=== PATIENT | female | born 1970 | race Caucasian/White ===

== ENCOUNTER 2022-10-19 15:32 | Outpatient (AMB) | payer OTHER, SELFPAY ==
--- NOTE | 2022-10-19 16:06 | MHC.OFFVISPS ---
Intake Intake Visit Reasons: depression Allergies No Known Allergies Allergy (Verified 10/19/22 16:04) Medication List - Last Reconciled 10/19/22 by Logan Mondragon MD bupropion HCl (Wellbutrin XL) 300 mg PO QAM metoprolol succinate ER 25 mg PO DAILY pravastatin 20 mg PO DAILY progesterone micronized 200 mg PO BEDTIME sertraline 100 mg PO DAILY thyroid (pork) ([place] Thyroid) 90 mg PO QAM HPI- Psychiatric Chief Complaint: depression HPI Narrative: Pt is a 52 yo female hx depression anxiety rare limited sx panic attack using cbd occ has been using bioidentical hormones with testosterone does not have breakthrough sx works at [employer] hx of eating dx has performance anxiety patient has been on sertraline and Wellbutrin for an extended per time. She feels somewhat demoralized sure what to do with your herself she is seeing difficult 1 child who is staying at home for 1 more year has limited engagement interests except for around the stables. A has been feeling more depressed anxious ruminated were about her future her time not having fun and structure Past Psychiatric History: Patient has a past history of prior psychiatric hospitalization significant eating disorder history of depression past panic attacks associated in the past with SVT Mental Status Exam Mental Status Exam Patient Appearance: Well Grooomed Patient Orientation: Person, Place, Time and Situation Level of Consciousness: Awake and Appropriate Patient Behavior: Appropriate Mood Description: Depressed and Blunted Affect Description: Appropriate, Constricted and Apprehensive Patient Cognition Impaired: No Ability to Follow Directions: Good Speech Pattern: Clear Memory Description: Intact Hallucinations: None Delusions: Not Present Thought Process: Intact and Goal Oriented Thought Content: positive for Goal Oriented, positive for Preoccupation, negative for Suicidal Ideation or negative for Homicidal Ideation Depressive Symptoms: Increased Anxiety, Increased Irritability, Hopelessness, Increased Fatigue, Loss of Energy and Difficulty Concentrating Judgement: Good Judgement and Insight: Agrees would benefit from longstanding psychotherapy related to eating disorder image anxiety identity Assessment and Plan Assessment & Plan (1) Dysthymia: Status: Acute Code(s): F34.1 - Dysthymic disorder (2) Eating disorder: Status: Acute Code(s): F50.9 - Eating disorder, unspecified (3) Generalized anxiety disorder: Status: Acute Code(s): F41.1 - Generalized anxiety disorder Plan Patient feels no longer her grounded obsessional anxiety dysphoria boredom feeling unhappy not sure what she should do. Difficulty in managing life cycle changes can increase Wellbutrin continue sertraline 100 mg Counseling and coordination of Care Pt. Self Management counseling: Maintenance-social rhythm and Behavior activation Details-Self Mgmt counseling: Issues related to identity growth change in life cycle empty nest feeling of depressive symptoms panic lack of motivation and interest in what she is doing Diagnosis and Prognosis Counseling: Accuracy of diagnosis, Prognosis over time and Problematic behaviors secondary to diagnosis Details: I spent [38] minutes reviewing the record, seeing the patient and documenting in the medical record. Counseling provided to the patient/caregiver as outlined below. Addressed patient/caregiver concerns regarding current medication regime including effective adherence. Addressed patient/caregiver concerns regarding diagnosis and prognosis including accuracy of diagnosis, prognosis over time, impact of diagnosis. Addressed patient/caregiver concerns regarding impact of recent stressors. [facility] Medical History (Updated 11/20/22 @ 23:38 by Logan Mondragon MD) Dysthymia Eating disorder Generalized anxiety disorder Coding Level of Care Code Est Pt Level 3 (47321) Therapy 30m w/E&M (07640) Diagnoses Dysthymia F34.1 Eating disorder F50.9 Generalized anxiety disorder F41.1
== END 2022-10-19 17:21 | disposition home or self-care (01) ==
LOC: HO.HOP 15:32
PROVIDERS: PCP Internal Medicine; Visit Provider Psychiatry & Neurology Psychiatry
DX: F34.1 Dysthymic disorder (principal); F50.9 Eating disorder, unspecified; F41.1 Generalized anxiety disorder
CPT/HCPCS: 90833; 99213

== ENCOUNTER → 2022-10-19 15:32 | Outpatient (BNVA) | payer OTHER, SELFPAY | PROVIDERS: PCP Internal Medicine; Visit Provider Psychiatry & Neurology Psychiatry ==

== ENCOUNTER 2023-04-12 13:17 | Outpatient (AMB) | payer OTHER, SELFPAY ==
--- NOTE | 2023-04-12 11:42 | A.OFFPSYCH_ITS ---
Intake Intake Visit Reasons: DEPRESSION Allergies No Known Allergies Allergy (Verified 10/19/22 16:04) HPI- Psychiatric Chief Complaint: DEPRESSION HPI Narrative: Pt feeling significantly better things feel more stable at home . Pt [place] lot of time at the barn mood has been much more improved still has issues with chronic anxiety and dysphoria. A lot related to aging and roll functioning. The patient has something of a reprieve for the next few months child at home. Her now has a regular physician has been trying to come home earlier. Patient does get some medical care from her sister who is an streetcar repairer helper she does take hormones supply by her sister Past Psychiatric History: Patient has a past history of prior psychiatric hospi talization significant eating disorder history of depression past panic attacks associated in the past with SVT Mental Status Exam Mental Status Exam Patient Appearance: Well Grooomed Patient Orientation: Person, Place, Time and Situation Level of Consciousness: Awake and Appropriate Patient Behavior: Appropriate Mood Description: Depressed and Blunted Affect Description: Appropriate, Constricted and Apprehensive Patient Cognition Impaired: No Ability to Follow Directions: Good Speech Pattern: Clear Memory Description: Intact Hallucinations: None Delusions: Not Present Thought Process: Intact and Goal Oriented Thought Content: positive for Goal Oriented, positive for Preoccupation, negative for Suicidal Ideation or negative for Homicidal Ideation Depressive Symptoms: Increased Anxiety, Increased Irritability, Hopelessness, Increased Fatigue, Loss of Energy and Difficulty Concentrating Judgement: Good Judgement and Insight: Agrees would benefit from longstanding psychotherapy related to eating disorder image anxiety identity Telehealth Telehealth Location of provider rendering services: practice address Location of patient: address on file Patient Identification confirmed using: Name, : Yes Telehealth method: video Patient verbally consented to treatment: Yes Patient verbally consented to billing insurance company: Yes Minutes spent on Phone/Video with Pt.: 19 Assessment and Plan Assessment & Plan (1) Generalized anxiety disorder: Status: Acute Code(s): F41.1 - Generalized anxiety disorder (2) Dysthymia: Status: Acute Code(s): F34.1 - Dysthymic disorder Plan Discussed different treatment options including Wellbutrin and BuSpar also discussed option of regular psychotherapy to deal with longer-term issues related to role functioning and aging start BuSpar 5 b.i.d. risks benefits alternatives reviewed also taking L methyl folate for augmentation Medications: New buspirone 10 mg PO BID 60 tabs 1RF Refilled bupropion HCl (Wellbutrin XL) 300 mg PO QAM 90 tabs 0RF sertraline 150 mg (1.5 x 100 mg) PO DAILY 135 tabs 1RF 3 months Counseling and coordination of Care Pt. Self Management counseling: Breathing and Behavior activation Medication management counseling: Effectiveness, Side effects and Dosing range Diagnosis and Prognosis Counseling: Accuracy of diagnosis, Impact of diagnosis on life functions and Adequacy of current interventions Details: I spent [25] minutes reviewing the record, seeing the patient and documenting in the medical record. Counseling provided to the patient/caregiver as outlined below. Addressed patient/caregiver concerns regarding current medication regime including effective adherence. Addressed patient/caregiver concerns regarding diagnosis and prognosis including accuracy of diagnosis, prognosis over time, impact of diagnosis. Addressed patient/caregiver concerns regarding impact of recent stressors. [facility] Medical History (Updated 11/20/22 @ 23:38 by Logan Mondragon MD) Generalized anxiety disorder Eating disorder Dysthymia Coding Level of Care Code Tele Est Pt Level 4 (09950) Diagnoses Generalized anxiety disorder F41.1 Dysthymia F34.1
== END 2023-04-12 13:19 | disposition home or self-care (01) ==
LOC: HO.HOP 13:17
PROVIDERS: PCP Internal Medicine; Visit Provider Psychiatry & Neurology Psychiatry
DX: F41.1 Generalized anxiety disorder (principal); F34.1 Dysthymic disorder
CPT/HCPCS: 99213

== ENCOUNTER → 2023-04-12 13:17 | Outpatient (BNVA) | payer OTHER, SELFPAY | PROVIDERS: PCP Internal Medicine; Visit Provider Psychiatry & Neurology Psychiatry ==

== ENCOUNTER 2023-11-24 10:28 | Outpatient (AMB) | payer OTHER, SELFPAY ==
--- NOTE | 2023-11-24 10:49 | MHC.OFFVISPS ---
Intake Intake Visit Reasons: depression Allergies No Known Allergies Allergy (Verified 10/19/22 16:04) Medication List - Last Reconciled 11/24/23 by Logan Mondragon MD bupropion HCl XL (Wellbutrin XL) 300 mg PO QAM buspirone 10 mg PO BID estradiol transdermal metoprolol succinate ER 25 mg PO DAILY niacinamide 500 mg PO BID pravastatin 20 mg PO DAILY progesterone micronized 200 mg PO BEDTIME sertraline 150 mg (1.5 x 100 mg) PO DAILY 3 months thyroid (pork) ([place] Thyroid) 60 mg PO QAM HPI- Psychiatric Chief Complaint: depression HPI Narrative: Pt seen in f/u mood has been ok issues related to aging relations with children now an empty chel . Has generally been good with her . Has had anxiety related to current stage life needs structure daily of caring for horses needing that structure fearful of change. Past Psychiatric History: Patient has a past history of prior psychiatric hospitalization significant eating disorder history of depression past panic attacks associated in the past with SVT Mental Status Exam Mental Status Exam Patient Appearance: Well Grooomed Patient Orientation: Person, Place, Time and Situation Level of Consciousness: Awake and Appropriate Patient Behavior: Appropriate and Talkative Mood Description: Appropriate Affect Description: Calm and Appropriate Patient Cognition Impaired: No Ability to Follow Directions: Good Speech Pattern: Clear Memory Description: Intact Hallucinations: None Delusions: Not Present Thought Process: Intact and Goal Oriented Thought Content: positive for Goal Oriented, positive for Preoccupation, negative for Suicidal Ideation or negative for Homicidal Ideation Depressive Symptoms: Increased Anxiety, Increased Irritability, Hopelessness, Increased Fatigue, Loss of Energy and Difficulty Concentrating Judgement: Good Judgement and Insight: Agrees would benefit from longstanding psychotherapy related to eating disorder image anxiety identity Assessment and Plan Assessment & Plan (1) Generalized anxiety disorder: Status: Acute Code(s): F41.1 - Generalized anxiety disorder (2) Eating disorder: Status: Acute Code(s): F50.9 - Eating disorder, unspecified (3) Dysthymia: Status: Acute Code(s): F34.1 - Dysthymic disorder Plan Patient has not had any major relapses with eating disorder occasional mild blues but generally in good spirits some periods of mild anxiety. Issues discussed related to family interactions with children self-esteem has some degree of chronic social anxiety. 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 Strongly urged ongoing IT Medications: Changed From buspirone 10 mg PO BID 60 tabs 1RF To buspirone 10 mg PO BID 180 tabs 1RF 3 months Counseling and coordination of Care Pt. Self Management counseling: Maintenance-social rhythm Details-Self Mgmt counseling: issues related to self esteem interactions with her son discussed ways to enhance social connections Diagnosis and Prognosis Counseling: Adequacy of current interventions Details: I spent [42] minutes reviewing the record, seeing the patient and documenting in the medical record. Counseling provided to the patient/caregiver as outlined below. Addressed patient/caregiver concerns regarding current medication regime including effective adherence. Addressed patient/caregiver concerns regarding diagnosis and prognosis including accuracy of diagnosis, prognosis over time, impact of diagnosis. Addressed patient/caregiver concerns regarding impact of recent stressors. [facility] Medical History (Updated 11/20/22 @ 23:38 by Logan Mondragon MD) Generalized anxiety disorder Eating disorder Dysthymia Coding Level of Care Code Est Pt Level 3 (77096) Therapy 30m w/E&M (35810) Diagnoses Generalized anxiety disorder F41.1 Eating disorder F50.9 Dysthymia F34.1
== END 2023-11-24 11:34 | disposition home or self-care (01) ==
LOC: HO.HOP 10:28
PROVIDERS: PCP Internal Medicine; Visit Provider Psychiatry & Neurology Psychiatry
DX: F41.1 Generalized anxiety disorder (principal); F50.9 Eating disorder, unspecified; F34.1 Dysthymic disorder
CPT/HCPCS: 90833; 99213

== ENCOUNTER → 2023-11-24 10:28 | Outpatient (BNVA) | payer OTHER, SELFPAY | PROVIDERS: PCP Internal Medicine; Visit Provider Psychiatry & Neurology Psychiatry ==

== ENCOUNTER 2024-03-15 10:17 | Outpatient (AMB) | payer OTHER, SELFPAY ==
--- OUTSIDE RECORDS SUMMARY | 2024-03-15 10:21 | XMS_ITS | Continuity of Care Document ---
Author Organization [facility] [address] [place] [address] Phone [phone] Social History Type Date Description Comments Sex Unknown Medical Devices Description No Information Available Encounters Description No Information Available Assessments Description No Information Available Plan of Treatment No Information Available Functional Status Description No Information Available Mental Status Description No Information Available Referrals Description No Information Available
--- NOTE | 2024-03-15 10:56 | A.OFFPSYCH_ITS ---
Intake Intake Visit Reasons: depression Allergies No Known Allergies Allergy (Verified 10/19/22 16:04) HPI- Psychiatric Chief Complaint: depression HPI Narrative: Pt seen in f/u patient generally doing okay has not seen a therapist we had discussed seeing someone to help sort out current potassium is. 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 Patient's mood generally stable still has 1 young adult at home. Things generally well with her and family. No acute medical problems noted has felt stable with hormonal replacement BuSpar sertraline and Wellbutrin. Angelito 7 and PHQ-9 are unremarkable Past Psychiatric History: Patient has a past history of prior psychiatric hospitalization significant eating disorder history of depression past panic attacks associated in the past with SVT Mental Status Exam Mental Status Exam Patient Appearance: Well Grooomed Patient Orientation: Person, Place, Time and Situation Level of Consciousness: Awake and Appropriate Patient Behavior: Appropriate and Talkative Mood Description: Appropriate Affect Description: Calm and Appropriate Patient Cognition Impaired: No Ability to Follow Directions: Good Speech Pattern: Clear Memory Description: Intact Hallucinations: None Delusions: Not Present Thought Process: Intact and Goal Oriented Thought Content: positive for Goal Oriented, positive for Preoccupation, negative for Suicidal Ideation or negative for Homicidal Ideation Judgement: Good Judgement and Insight: Patient states she has been feeling better she and her have been discussing potential moves Assessment and Plan Assessment & Plan (1) Generalized anxiety disorder: Status: Acute Code(s): F41.1 - Generalized anxiety disorder Plan Discussion of regular meditation Meuse headband relaxation training yoga increase BuSpar to 15 mg twice a day potential side effects balance patient call if problematic continue sertraline 150 mg Wellbutrin blood pressure mildly elevated will follow-up with her PCP. Discussed possibility of propranolol 10 mg p.r.n. however she is on metoprolol 25 extended release also reviewed possibility of life science research assistant Dysthymia and eating disorder appeared to be in remission Medications: Changed From buspirone 10 mg PO BID 3 months 180 tabs 1RF To buspirone 15 mg PO BID 60 tabs 0RF 30 days Counseling and coordination of Care Pt. Self Management counseling: Breathing and Mindfulness Details-Self Mgmt counseling: Issues related to management of anxiety and self-image ongoing Medication management counseling: Effectiveness, Side effects and Dosing range Diagnosis and Prognosis Counseling: Prognosis over time and Adequacy of current interventions Details: I spent [39] minutes reviewing the record, seeing the patient and documenting in the medical record. Counseling provided to the patient/caregiver as outlined below. Addressed patient/caregiver concerns regarding current medication regime including effective adherence. Addressed patient/caregiver concerns regarding diagnosis and prognosis including accuracy of diagnosis, prognosis over time, impact of diagnosis. Addressed patient/caregiver concerns regarding impact of recent stressors. [facility] Medical History (Updated 11/20/22 @ 23:38 by Logan Mondragon MD) Generalized anxiety disorder Eating disorder Dysthymia Coding Level of Care Code Est Pt Level 3 (44941) Therapy 30m w/E&M (58181) Diagnoses Generalized anxiety disorder F41.1
== END 2024-03-15 11:08 | disposition home or self-care (01) ==
LOC: HO.HOP 10:17
PROVIDERS: PCP Internal Medicine; Visit Provider Psychiatry & Neurology Psychiatry
DX: F41.1 Generalized anxiety disorder (principal)
CPT/HCPCS: 90833; 99213

== ENCOUNTER 2024-06-22 10:34 | Outpatient (AMB) | payer OTHER, SELFPAY ==
--- NOTE | 2024-06-22 10:57 | MHC.OFFVISPS ---
Intake Intake Visit Reasons: depression Allergies No Known Allergies Allergy (Verified 10/19/22 16:04) HPI- Psychiatric Chief Complaint: depression HPI Narrative: Pt seen in f/u mood has been good significantly improved since being on buspar Has been thinking of ways to detangle herself to always be perfect, and always having that pressure. Pt cont on sertraline no binge purging. Pt looking at changing her life around talking with her h about different ideas and possibly moving. Past Psychiatric History: Patient has a past history of prior psychiatric hospitalization significant eating disorder history of depression past panic attacks associated in the past with SVT Mental Status Exam Mental Status Exam Patient Appearance: Well Grooomed Patient Orientation: Person, Place, Time and Situation Level of Consciousness: Awake and Appropriate Patient Behavior: Appropriate and Talkative Mood Description: Appropriate Affect Description: Calm and Appropriate Patient Cognition Impaired: No Ability to Follow Directions: Good Speech Pattern: Clear Memory Description: Intact Hallucinations: None Delusions: Not Present Thought Process: Intact and Goal Oriented Thought Content: positive for Goal Oriented, positive for Preoccupation, negative for Suicidal Ideation or negative for Homicidal Ideation Judgement: Good Judgement and Insight: Patient states she has been feeling better she and her have been discussing potential moves Assessment and Plan Assessment & Plan (1) Generalized anxiety disorder: Status: Acute Code(s): F41.1 - Generalized anxiety disorder Plan cont wellbutrin sertraline buspar f/u 4 months no c/o side effects feeling more engaged with his life ed not active not overly depressed Medications: Refilled bupropion HCl XL (Wellbutrin XL) 300 mg PO QAM 90 tabs 1RF buspirone 15 mg PO BID 60 tabs 0RF 30 days sertraline 150 mg (1.5 x 100 mg) PO DAILY 135 tabs 1RF 3 months Counseling and coordination of Care Details-Self Mgmt counseling: encourage more freedom individuation feeling freer less restricted by ritual Medication management counseling: Effectiveness and Dosing range Diagnosis and Prognosis Counseling: Impact of diagnosis on life functions and Adequacy of current interventions Details: I spent [39] minutes reviewing the record, seeing the patient and documenting in the medical record. Counseling provided to the patient/caregiver as outlined below. Addressed patient/caregiver concerns regarding current medication regime including effective adherence. Addressed patient/caregiver concerns regarding diagnosis and prognosis including accuracy of diagnosis, prognosis over time, impact of diagnosis. Addressed patient/caregiver concerns regarding impact of recent stressors. [facility] Medical History (Updated 11/20/22 @ 23:38 by Logan Mondragon MD) Generalized anxiety disorder Eating disorder Dysthymia Coding Level of Care Code Est Pt Level 3 (52478) Therapy 30m w/E&M (52931) Diagnoses Generalized anxiety disorder F41.1
== END 2024-06-22 11:03 | disposition home or self-care (01) ==
LOC: HO.HOP 10:34
PROVIDERS: PCP Internal Medicine; Visit Provider Psychiatry & Neurology Psychiatry
DX: F41.1 Generalized anxiety disorder (principal)
CPT/HCPCS: 90833; 99213

== ENCOUNTER 2025-02-11 08:20 | Outpatient (AMB) | payer OTHER, SELFPAY ==
[2025-02-11 08:24] VITALS: BP 130/76; PULSE 63; O2SAT 97; BMI 20.9
--- NOTE | 2025-02-11 08:24 | A.OFFVIS_ITS ---
Vital Signs 02/11/25 08:24 Height 5 ft 3 in Weight 117 lb 15.157 oz BMI 20.9 BP 130/76 Blood Pressure Location Lt brachial Position Sitting Pulse 63 Pulse Source Pulse Oximeter Pulse Oximetry (%) 97 Oxygen Delivery Method Room Air Intake Visit Reasons: SLE/ joint pain/ New Patient Intake Note: Patient is a new patient, externally referred by Dr. Chucky Pepper, of [facility] for SLE/joint pain. Health Professor Required: No Accompanied by: Self / Same As Patient Allergies No Known Allergies Allergy (Verified 02/11/25 08:28) HPI Comments Details: 54-year-old female with a past medical history of thyroid disorder, history of basal cell carcinoma, anxiety with depression coming in for new patient evaluation for SLE referred by her senior environmental practice leader She endorses photosensitivity, joint pain in hands knees hips and lower back with morning stiffness of 2 hours She states her joint pain started 1-2 years ago, and in November she had a flare of her joint pain most notably in her hands hips and knees lower back. She then thought she may have Lyme disease as she is out in the matt and actively engages in her horses however she denies any bull's eye rash or fever at the time. She did take doxycycline for 2 months, her last dose was last month. She states that after taking the doxycycline she felt significantly better. She does have a malar rash, with some actinic kertaosis on the arms, some chest redness. she also endorses dry eyes and some dry mouth however she denies painful red eyes or uveitis. Patient states she has some canker sores once or twice a month that are painful on the tongue stress related. She denies hair loss, Raynaud's, pleuritic chest pain, other skin rashes, miscarriages, blood clots. She reports that she has been taking Tylenol Arthritis 1 pill in the morning 1 pill at night. This has helped her joint pain. She also states that she has increased her levothyroxine as her T4 levels were low. This has also helped her joint pain There is family history of mother having inflammatory arthritis, most likely ankylosing spondylitis. At the dermatology office blood work was done notable for positive RICA 1:160 RICA dense fine speckled pattern normal CRP CBC within normal limits CMP, including creatinine EGFR within normal limits, normal ESR Patient also had blood work including RF CCP negative, SSA SSB negative, anti DS DNA antibody negative Vital signs reviewed Physical Examination CONSTITUITIONAL Patient alert and cooperative. Well appearing and in no apparent painful distress HEENT Conjunctiva and sclera clear. No lymphadenopathy. CHEST/RESPIRATORY SYSTEM Normal respiratory effort and able to speak in complete sentences. Clear to auscultation bilaterally. No crackles, rales, rhonchi, wheezes heard. CARDIAC SYSTEM Regular rate and rhythm. S1 and S2 heard no murmurs. Radial pulses intact bilaterally MSK Hands * Right Hand: Able to make a fist. Right 2nd and 3rd PIP enlarged, she states she had trauma to these fingers many years ago. No active synovitis noted in any of the joints. no tenderness in PIPs MCPs * Left Hand: Able to make a fist. No active synovitis noted in any of the joints,no tenderness in PIPs MCPs Wrists * Right Wrist: Full ROM to flexion and extension. No swelling or TTP * Left Wrist: Full ROM to flexion and extension. No swelling or TTP Elbows * Right Elbow: Full ROM. No swelling or TTP. No TTP of the medial epicondyle. No TTP of the lateral epicondyle * Left Elbow: Full ROM. No swelling or TTP. No TTP of the medial epicondyle. No TTP of the lateral epicondyle Shoulders * Right shoulder: Full ROM. No swelling noted. * Left shoulder: Full ROM. No swelling noted. Hips * Right hip: Good ROM. No pain elicited with hip flexion/internal rotation/external rotation * Left hip: Good ROM. No pain elicited with hip flexion/internal rotation/external rotation Hip bursa: No tenderness to palpation bilaterally Knees * Right knee: Full ROM. No swelling noted. No TTP of the knee joint line. No TTP of pes anserine bursa * Left knee: Full ROM. No swelling noted. No TTP of the knee joint line. No TTP of pes anserine bursa. Ankles * Right ankle: Good ankle dorsiflexion and plantar flexion. No swelling. No TTP of the ankle joint * Left ankle: Good ankle dorsiflexion and plantar flexion. No swelling. No TTP of the ankle joint Feet * Right foot: Negative squeeze test * Left foot: Negative squeeze test SKIN Malar rash noted. Slight redness of the chest noted. No livedo reticularis. Actinic keratoses noted on the extremities. [facility] Medical History (Updated 02/11/25 @ 09:27 by Cassy Mckinney MD) delivery delivered Skin cancer screening Actinic keratosis Melanocytic nevi of right upper limb, including shoulder Melanocytic nevi of trunk Melanocytic nevi of scalp and neck Melanocytic nevi of face Subacute cutaneous lupus erythematosus Basal cell carcinoma Thyroid disease History of sunburn Hyperlipidemia Hypertension Generalized anxiety disorder Eating disorder Dysthymia Surgical History (Updated 02/11/25 @ 08:34 by Lulu Rios CMA) Hx of appendectomy S/P wrist surgery Family History (Updated 02/11/25 @ 08:36 by Lulu Rios CMA) Mother Spondylosis Heart attack Father Gastrointestinal stromal tumor Sister No problems noted. Social History (Updated 02/11/25 @ 08:37 by Lulu Rios CMA) Alcohol intake: current Alcohol intake frequency: holidays/special occasions only Patient Tobacco Use Status: Never used Tobacco Physical Exam Vital Signs: Last Vital Signs Pulse 63 02/11/25 08:24 BP 130/76 02/11/25 08:24 Pulse Ox 97 02/11/25 08:24 Oxygen Delivery Method Room Air 02/11/25 08:24 BMI result Body Mass Index 20.9 Assessment & Plan Assessment & Plan (1) Polyarthralgia: Code(s): M25.50 - Pain in unspecified joint Category: Medical Plan: Patient presents with inflammatory joint pain and malar rash with positive RICA 1:160 dense speckled Most likely patient has SLE, with mild disease activity(positive RICA, inflammatory joint pain, malar rash) Patient states that ever since increasing her thyroxine medication and after taking doxycycline for 2 months she feels better. She also takes Tylenol Arthritis for joint pain For now we have decided to monitor her disease off of medication, today I will get urine studies (UPCR) as well as complement C3-C4 level for complete workup Rest of her workup including RICA specificity, ESR CRP , RF CCP are negative. We will see her back in 3 months for follow up (2) Positive RICA (antinuclear antibody): Code(s): R76.8 - Other specified abnormal immunological findings in serum Category: Medical Plan Patient presents with inflammatory joint pain and malar rash with positive RICA 1:160 dense speckled Most likely patient has SLE, with mild disease activity(positive RICA, inflammatory joint pain, malar rash) Patient states that ever since increasing her thyroxine medication and after taking doxycycline for 2 months she feels better. She also takes Tylenol Arthritis for joint pain For now we have decided to monitor her disease off of medication, today I will get urine studies (UPCR) as well as complement C3-C4 level for complete workup Rest of her workup including RICA specificity, ESR CRP , RF CCP are negative. We will see her back in 3 months for follow up Orders: Orders Complement C3 Today M32.9 - Systemic lupus erythematosus, unspecified Complement C4 Today M32.9 - Systemic lupus erythematosus, unspecified UA and rflx microscopic Today M32.9 - Systemic lupus erythematosus, unspecified Protein Creatinine Ratio, Ur Today M32.9 - Systemic lupus erythematosus, unspecified Coding Level of Care Code New Pt Level 4 (03586) Diagnoses Polyarthralgia M25.50 Positive RICA (antinuclear antibody) R76.8
== END 2025-02-11 09:19 | disposition home or self-care (01) ==
LOC: HO.RHES 08:20
PROVIDERS: PCP Internal Medicine; Visit Provider Student in an Organized Health Care Education/Training Program
DX: M25.50 Pain in unspecified joint (principal); R76.89 Other specified abnormal immunological findings in serum
CPT/HCPCS: 99204

== ENCOUNTER 2025-02-11 08:20 | Outpatient (REF) | payer OTHER, SELFPAY ==
[2025-02-11 13:15] LABS: Appearance Urine Clear; Glucose Urine UA Negative (Negative); PH 5.5 (5.0-9.0); Specific Gravity - Urine 1.020 (1.005-1.025)
[2025-02-11 13:49] LABS: Total Protein Urine Random < 7 mg/dL (<12)
== END 2025-02-11 08:21 | disposition home or self-care (01) ==
LOC: HO.HKASLDS 08:20
PROVIDERS: PCP Internal Medicine; Visit Provider Student in an Organized Health Care Education/Training Program
DX: R76.89 Other specified abnormal immunological findings in serum (principal); R21 Rash and other nonspecific skin eruption; M25.551 Pain in right hip; M25.552 Pain in left hip; M25.561 Pain in right knee; M25.562 Pain in left knee; M25.541 Pain in joints of right hand; M25.542 Pain in joints of left hand
CPT/HCPCS: 36415; 81003; 82570; 84156; 86160

== ENCOUNTER 2025-02-20 11:38 | Outpatient (AMB) | payer OTHER, SELFPAY ==
--- NOTE | 2025-02-20 12:26 | MHC.OFFVISPS ---
Intake Intake Visit Reasons: depression Allergies No Known Allergies Allergy (Verified 02/11/25 08:28) Medication List - Last Reconciled 02/20/25 by Logan Mondragon MD bupropion HCl XL (Wellbutrin XL) 300 mg PO QAM buspirone 15 mg PO BID 90 days estradiol transdermal metoprolol succinate ER 25 mg PO DAILY niacinamide 500 mg PO BID pravastatin 20 mg PO DAILY progesterone micronized 200 mg PO BEDTIME sertraline 150 mg (1.5 x 100 mg) PO DAILY 3 months [testosterone Anazeo 3 clicks of stick at night] thyroid (pork) ([place] Thyroid) 60 mg PO QAM HPI- Psychiatric Chief Complaint: depression HPI Narrative: PATIENT SUMMARY: The patient presented for a follow-up psychiatric evaluation with a history of potential autoimmune issues and medication management concerns. HPI: The patient reported having visited a developmental writing instructor due to severe bone pain and a red rash, which raised suspicions of lupus. Blood work showed a positive RICA, but markers for rheumatoid arthritis were negative. The patient speculated a possible bout of Niranjan's disease, as the pain was significant enough to cause crying during movement. The patient had been taking doxycycline, which alleviated symptoms, but noted the return of symptoms after stopping the medication. The patient mentioned an increase in [place] thyroid to 90 mg, which was done upon advice from her sister. The patient also reported having stopped Wellbutrin (300 mg) due to a lapse in prescription refills. The patient noted feeling better currently and is not experiencing any flare-up symptoms. MENTAL STATUS: The patient stated, I feel great now. PAIN: The patient reported experiencing severe bone pain previously, which caused crying during movement, but reported feeling much better currently. BACKGROUND: The patient did not report any new allergies. The patient mentioned an increase in [place] thyroid to 90 mg and had stopped Wellbutrin (300 mg) due to a lapse in prescription refills. The patient did not report any new physical symptoms currently. Past Psychiatric History: Patient has a past history of prior psychiatric hospitalization significant eating disorder history of depression past panic attacks associated in the past with SVT Mental Status Exam Mental Status Exam Patient Appearance: Well Grooomed Patient Orientation: Person, Place, Time and Situation Level of Consciousness: Awake and Appropriate Patient Behavior: Appropriate and Talkative Mood Description: Appropriate Affect Description: Calm and Appropriate Patient Cognition Impaired: No Ability to Follow Directions: Good Speech Pattern: Clear Memory Description: Intact Hallucinations: None Delusions: Not Present Thought Process: Intact and Goal Oriented Thought Content: positive for Goal Oriented, positive for Preoccupation, negative for Suicidal Ideation or negative for Homicidal Ideation Judgement: Good Assessment and Plan Assessment & Plan (1) Dysthymia: Status: Acute Code(s): F34.1 - Dysthymic disorder (2) Generalized anxiety disorder: Status: Acute Code(s): F41.1 - Generalized anxiety disorder (3) Positive RICA (antinuclear antibody): Status: Acute Code(s): R76.8 - Other specified abnormal immunological findings in serum Plan ASSESSMENT: Differential diagnosis includes lupus, given the red rash and positive RICA; however, with negative rheumatoid markers, Niranjan's disease is also considered due to the positive RICA and thyroid issues. The possibility of a Lyme disease flare-up was considered by the patient but was not confirmed. PLAN: The patient was advised to follow up with the developmental writing instructor in six months for reevaluation of symptoms and consideration of hydroxychloroquine if necessary. The patient will email Dr. Diallo for potential primary care transfer. A year's supply of buspirone was prescribed, and the patient was advised to check in late March for further evaluation and potential sign-off from psychiatric care. The patient was encouraged to monitor and report any symptom flare-ups. Medications: Refilled sertraline 150 mg (1.5 x 100 mg) PO DAILY 135 tabs 3RF 3 months buspirone 15 mg PO BID 180 tabs 3RF 90 days Discontinued bupropion HCl XL (Wellbutrin XL) Discontinued Reason: Doctor's Order 300 mg PO QAM 90 tabs 1RF Counseling and coordination of Care Details: I spent [] minutes reviewing the record, seeing the patient and documenting in the medical record. Counseling provided to the patient/caregiver as outlined below. Addressed patient/caregiver concerns regarding current medication regime including effective adherence. Addressed patient/caregiver concerns regarding diagnosis and prognosis including accuracy of diagnosis, prognosis over time, impact of diagnosis. Addressed patient/caregiver concerns regarding impact of recent stressors. [facility] Medical History (Updated 02/11/25 @ 09:27 by Cassy Mckinney MD) delivery delivered Skin cancer screening Actinic keratosis Melanocytic nevi of right upper limb, including shoulder Melanocytic nevi of trunk Melanocytic nevi of scalp and neck Melanocytic nevi of face Subacute cutaneous lupus erythematosus Basal cell carcinoma Thyroid disease History of sunburn Hyperlipidemia Hypertension Generalized anxiety disorder Eating disorder Dysthymia Surgical History (Updated 02/11/25 @ 08:34 by Lulu Rios CMA) Hx of appendectomy S/P wrist surgery Family History (Updated 02/11/25 @ 08:36 by Lulu Rios CMA) Mother Spondylosis Heart attack Father Gastrointestinal stromal tumor Sister No problems noted. Social History (Updated 02/11/25 @ 08:37 by Lulu Rios CMA) Alcohol intake: current Alcohol intake frequency: holidays/special occasions only Patient Tobacco Use Status: Never used Tobacco Coding Level of Care Code Est Pt Level 4 (34087) Diagnoses Dysthymia F34.1 Generalized anxiety disorder F41.1 Positive RICA (antinuclear antibody) R76.8
--- OUTSIDE RECORDS SUMMARY | 2025-02-20 14:44 | XMS_ITS | Clinical Summary ---
Author Organization [facility] [address] [facility] Address [address] [place] [address] Phone Care Team Providers Care Staff Field Engineer Name Role Phone Shamar Stark MD Primary Care Provider [phone] Allergies No known active allergies Medications busPIRone (BUSPAR) 5 mg tablet Take 1 tablet (5 mg total) by mouth 2 (two) times a day. Active conjugated estrogens (PREMARIN) 5 mg/mL injection Infuse 5 mL (25 mg total) into a venous catheter. Active testosterone 12.5 mg/ 1.25 gram (1 %) gel in metered-dose pump Place 0.04 Act (0.5 mg of testosterone total) on the skin 1 (one) time each day. Max Daily Amount: 0.5 mg of testosterone Active progesterone (PROMETRIUM) 200 mg capsule Take 1 capsule (200 mg total) by mouth at bedtime. Active sertraline (ZOLOFT) 100 mg tablet Take by mouth 1 (one) time each day. Active buPROPion XL (WELLBUTRIN XL) 300 mg 24 hr tablet Take 1 tablet (300 mg total) by mouth 1 (one) time each day. Do not crush, chew, or split. Active pravastatin (PRAVACHOL) 20 mg tablet Take 1 tablet (20 mg total) by mouth at bedtime. Active metoprolol succinate (TOPROL-XL) 25 mg 24 hr tablet Take 1 tablet (25 mg total) by mouth 1 (one) time each day. Do not crush or chew. Active cholecalciferol (VITAMIN D-3) 50 mcg (2,000 unit) tablet Take 1 tablet (2,000 Units total) by mouth 1 (one) time each day. Active thyroid, pork, (ARMOUR THYROID) 60 mg tablet Take 1 tablet (60 mg total) by mouth 1 (one) time each day. Active Social History Tobacco Use Types Packs/Day Years Used Date Smoking Tobacco: Never Assessed Comments Unknown Sex and Gender Information Value Date Recorded Sex Assigned at Female 09/18/2024 8:59 AM EDT Legal Sex Female 2:01 AM EST Gender Identity Female 09/18/2024 8:59 AM EDT Sexual Orientation Not on file Plan of Treatment Health Maintenance Due Date Last Done Comments Breast Cancer Screening 1971 Colorectal Cancer Screening: Colonoscopy 1971 DTaP,Tdap,and Td Vaccines (1 - Tdap) 06/24/1990 Hepatitis B Vaccines (1 of 3 - 19+ 3-dose series) 06/24/1990 Cervical Cancer Screening: P ap Smear 06/24/1992 Pneumococcal Vaccine: 50+ Ye ars (1 of 1 - PCV) 06/24/2021 Zoster Vaccines (1 of 2) 06/24/2021 Depression Screening 03/28/2024 HIV Screening 09/19/2024 Hepatitis C Screening 09/19/2024 Social Influencers of Health Screening 09/19/2024 COVID-19 Vaccine (1 - 2024-2 6 season) 2024 Influenza Vaccine (#1) 2024 RSV Immunization Adult Patie nts (1 - 1-dose 75+ series) 06/24/2046 HIB Vaccines Aged Out No longer eligi ble based on patient's age to complete this topic HPV Vaccines Aged Out No longer eligi ble based on patient's age to complete this topic Hepatitis A Vaccines Aged Out No long er eligible based on patient's age to complete this topic IPV Vaccines Aged Out No longer eligi ble based on patient's age to complete this topic MMR Vaccines Aged Out No longer eligi ble based on patient's age to complete this topic Meningococcal ACWY Vaccine Aged Out N o longer eligible based on patient's age to complete this topic Meningococcal B Vaccine Aged Out No l onger eligible based on patient's age to complete this topic RSV Immunization Patients Un parminder 20 months Aged Out No longer eligible b ased on patient's age to complete this topic Varicella Vaccines Aged Out No longer eligible based on patient's age to complete this topic Insurance [employer] Care Teams Staff Field Engineer Relationship Specialty Start Date End Date Shamar Stark MD [address] [place] [address] PCP - General Internal Medicine 09/18/24
--- OUTSIDE RECORDS SUMMARY | 2025-02-20 14:44 | XMS_ITS | Encounter Summary ---
Author Organization [facility] Address [address] [place] [address] Phone Care Team Providers Care Gravity Prospecting Operator Name Role Phone Shamar Stark MD Primary Care Provider [phone] Encounter Details Date Type Department Care Team (Late st Contact Info) Description 03/25/2022 Documentation Only [facility] [address] [place] [address] Reyna Baez Social History Tobacco Use Types Packs/Day Years Used Date Smoking Tobacco: Never Smokeless Tobacco: Never Alcohol Use Standard Drinks/Week Comments Yes 0 (1 standard drink = 0.6 oz pur e alcohol) occasional Comments Unknown Sex and Gender Information Value Date Recorded Sex Assigned at Not on file Legal Sex Female 12:59 PM EDT Gender Identity Not on file Sexual Orientation Not on file documented as of this encounter Plan of Treatment Not on file documented as of this encounter Visit Diagnoses Diagnosis Hypertension documented in this encounter Care Teams Gravity Prospecting Operator Relationship Specialty Start Date End Date Shamar Stark MD [address] [place] [address] PCP - General Internal Medicine 11/25/21 documented as of this encounter
--- OUTSIDE RECORDS SUMMARY | 2025-02-20 14:44 | XMS_ITS | Continuity of Care Document ---
Author Organization [facility] [address] [facility] [address] [place] [address] Phone [phone] Social History Type Date Description Comments Sex Female Sex Unknown Medical Devices Description No Information Available Encounters Description No Information Available Assessments Description No Information Available Plan of Treatment No Information Available Functional Status Description No Information Available Mental Status Description No Information Available Referrals Description No Information Available
--- OUTSIDE RECORDS SUMMARY | 2025-02-20 14:44 | XMS_ITS | Encounter Summary ---
Author Organization [facility] Address [address] [place] [address] [place] [phone] Phone Care Team Providers Care Truckload Owner Operator Name Role Phone Shamar Stark MD Primary Care Provider [phone] Encounter Details Date Type Department Care Team (Late st Contact Info) Description 04/01/2023 Procedure Pass OR Admitting Dept - Virtual Department [address] [place] [id number] Social History Tobacco Use Types Packs/Day Years Used Date Smoking Tobacco: Never Smokeless Tobacco: Never Alcohol Use Standard Drinks/Week Comments Not Currently 0 (1 standard drink = 0.6 oz pur e alcohol) Education Answer Date Recorded Are you interested in more education? Not on aleksander e 02/08/2023 Are you concerned about learning? Not on file 02/08/2023 No 02/08/2023 No 02/08/2023 Digital Access Answer Date Recorded No 02/08/2023 No 02/08/2023 Reliable internet access at home? Not on file 02/08/2023 Device with a working camera? Not on file Comments Unknown Sex and Gender Information Value Date Recorded Sex Assigned at Not on file Legal Sex Female 10:29 AM EST Gender Identity Not on file Sexual Orientation Not on file documented as of this encounter Plan of Treatment Not on file documented as of this encounter Visit Diagnoses Not on filedocumented in this encounter Care Teams Truckload Owner Operator Relationship Specialty Start Date End Date Shamar Stakr MD [address] [place] [address] PCP - General Internal Medicine 02/08/23 documented as of this encounter Additional Source Comments The information contained in this document represents components of the legal health record. It is not the complete legal health record.[facility]
--- OUTSIDE RECORDS SUMMARY | 2025-02-20 14:44 | XMS_ITS | Clinical Summary ---
Author Organization [facility] Address [address] [place] [address] [place] [id number] Phone Care Team Providers Care Atomic Physics Teacher Name Role Phone Shamar Stark MD Primary Care Provider + [phone] Allergies No known active allergies Medications buPROPion (WELLBUTRIN XL) 300 MG ER 24 hr tablet Take 300 mg by mouth. Active metoprolol succinate (TOPROL-XL) 25 MG 24 hr tablet Take 1 tablet by mouth every morning. 12/08/2022 Active pravastatin (PRAVACHOL) 40 MG tablet Take 20 mg by mouth. Active thyroid, pork, (ARMOUR THYROID) 90 mg Tab Take 90 mg by mouth. 12/01/2021 Active sertraline (ZOLOFT) 100 MG tablet Take 1.5 tablets by mouth every morning. 02/06/2023 Active Family History Medical History Relation Comments Cancer Father Heart disease Father Hypertension Father Heart disease Mother Hypertension Mother Relation Status Comments Father Mother Social History Tobacco Use Types Packs/Day Years Used Date Smoking Tobacco: Never Smokeless Tobacco: Never Tobacco Cessation:Counseling Given: Not Answered Alcohol Use Standard Drinks/Week Comments Not Currently [...] on file Sexual Orientation Not on file Last Filed Vital Signs Vital Sign Reading Time Taken Comments Blood Pressure 150/88 04/01/2023 8:46 AM EST Pulse 68 04/01/2023 8:46 AM EST Temperature - - Respiratory Rate - - Oxygen Saturation 97% 04/01/2023 8:46 AM EST Inhaled Oxygen Concentration - - Weight 52.3 kg (115 lb 3.2 oz) 02/15/2023 3:01 P M EST Height 154.3 cm (5' 0.75 ) 02/15/2023 3:01 PM ES T Body Mass Index 21.95 02/15/2023 3:01 PM EST Plan of Treatment Health Maintenance Due Date Last Done Comments Adult Td,Tdap Booster 1971 LIPID PANEL 1971 DEPRESSION SCREENING 1983 HEPATITIS C SCREENING 06/24/1989 HIV ONE-TIME SCREENING (18-6 5 YEARS) 06/24/1989 PAP SMEAR 06/24/1992 MAMMOGRAM 2011 COLOGUARD 06/24/2016 COLONOSCOPY 06/24/2016 COLORECTAL CANCER SCREENING 06/24/2016 FIT TEST 06/24/2016 FOBT 06/24/2016 SIGMOIDOSCOPY 06/24/2016 VIRTUAL COLONOSCOPY 06/24/2016 PNEUMOCOCCAL VACCINES (50+ years) (1 of 1 - PCV) 06/24/2021 ZOSTER VACCINES (1 of 2) 06/24/2021 INFLUENZA VACCINE (#1) 2024 COVID-19 VACCINE ( - 2024-2 6 season) 2024 04/03/2021, 08/04/2020, 07/06/2020 RSV VACCINE (1 - 1-dose 75+ series) 06/24/2046 SMOKING STATUS SCREENING (On ce After 26 Yrs) Completed 04/01/2023 HEPATITIS A VACCINES Aged Out No long er eligible based on patient's age to complete this topic HIB VACCINES Aged Out No longer eligi ble based on patient's age to complete this topic MENINGOCOCCAL VACCINES (ACWY) Aged Out No longer eligible based on patient's age to complete this topic MENINGOCOCCAL VACCINES (B) Aged Out N o longer eligible based on patient's age to complete this topic Medical Devices Not on file Insurance O POS EPO O POS EPO O POS EPO O POS EPO O POS EPO [employer] O POS EPO Care Teams Atomic Physics Teacher Relationship Specialty Start Date End Date Shamar Stark MD [address] [place] [address] PCP - General Internal Medicine 02/08/23 Additional Source Comments The information contained in this document represents components of the legal health record. It is not the complete legal health record.[facility]
--- OUTSIDE RECORDS SUMMARY | 2025-02-20 14:44 | XMS_ITS | Clinical Summary ---
Author Organization [facility] Address [address] [facility] [address] [place] [address] Phone Care Team Providers Care Installer Helper Name Role Phone Shamar Stark MD Primary Care Provider [phone] Allergies No known active allergies Medications metoprolol succinate XL (TOPROL XL) 25 MG 24 hr tablet Take 25 mg by mouth 1 (one) time each day Do not crush or chew. Active pravastatin (PRAVACHOL) 40 MG tablet Take 20 mg by mouth 5 (five) times a week Active buPROPion XL (WELLBUTRIN XL) 300 MG 24 hr tablet Take 300 mg by mouth 1 (one) time each day Do not crush, chew, or split. Active sertraline (ZOLOFT) 100 MG tablet Take 100 mg by mouth 1 (one) time each day 12/18/2021 Active Eugene Thyroid 90 MG tablet Take 90 mg by mouth 1 (one) time each day in the morning 12/01/2021 Active testosterone (ANDROGEL) 25 MG/2.5GM (1%) gel Place 25 mg on the skin 1 (one) time each day Active progesterone (ENDOMETRIN) 100 MG vaginal insert Insert 100 mg into the vagina 1 (one) time each day Active Active Problems Problem Noted Date Diagnosed Date Hypertension 03/01/2022 Fatigue 10/10/2017 Menopausal symptom 10/10/2017 Resolved Problems Problem Noted Date Diagnosed Date Resolved Date Anxiety 03/01/2022 03/01/2022 Depressive disorder 03/01/2022 03/01/20 22 Hyperlipidemia 03/01/2022 03/01/2022 Hyperthyroidism 03/01/2022 03/01/2022 Contact with and (suspected) exposure to other viral communicable diseases 03/06/20202021 Medical examination for suspected condition 03/03/2020 03/01/2022 Family History Medical History Relation Comments Cancer Brother Breast Cancer Hypertension Brother Cancer Father Stomach/Prostate Cancer Hypertension Father Heart disease Mother Hypertension Mother Hypertension Sister Relation Status Comments Brother Father Mother Alive Sister Social History Tobacco Use Types Packs/Day Years Used Date Smoking Tobacco: Never Smokeless Tobacco: Never Tobacco Cessation:Counseling Given: Not Answered Alcohol Use Standard Drinks/Week Comments Yes 0 (1 standard drink = 0.6 oz pur e alcohol) occasional Comments Unknown Sex and Gender Information Value Date Recorded Sex Assigned at Not on file Legal Sex Female 12:59 PM EDT Gender Identity Not on file Sexual Orientation Not on file Last Filed Vital Signs Vital Sign Reading Time Taken Comments Blood Pressure 120/70 04/22/2022 2:09 PM EST Pulse - - Temperature - - Respiratory Rate - - Oxygen Saturation - - Inhaled Oxygen Concentration - - Weight 52.8 kg (116 lb 6.4 oz) 04/22/2022 2:09 P M EST Height - - Body Mass Index - - Plan of Treatment Health Maintenance Due Date Last Done Comments Breast Cancer Screening 1970 Hepatitis B Vaccine (1 of 3 - 19+ 3-dose series) 06/24 Pneumococcal Vaccine: 50+ Years (1 of 2 - PCV) 991 Colorectal Cancer Screening: Annual FOBT 06/24/2020 Colorectal Cancer Screening: Colonoscopy 06/24/2020 Colorectal Cancer Screening: Sigmoidoscopy 06/24/2020 Influenza Vaccine (#1) 2024 Insurance [facility] Choice HMO ([id number]) [place] [address] [facility] Choice HMO ([id number]) [employer] Commercial Care Teams Installer Helper Relationship Specialty Start Date End Date Shamar Stark MD [address] [place] [address] PCP - General Internal Medicine 11/25/21
== END 2025-02-20 12:23 | disposition home or self-care (01) ==
LOC: HO.HOP 11:38
PROVIDERS: PCP Internal Medicine; Visit Provider Psychiatry & Neurology Psychiatry
DX: F34.1 Dysthymic disorder (principal); F41.1 Generalized anxiety disorder; R76.89 Other specified abnormal immunological findings in serum
CPT/HCPCS: 99214